=== PATIENT | female | born 1980 ===

== ENCOUNTER 2018-12-18 07:59 | Emergency (ER) | payer OTHER ==
[~2018-12-18] VITALS: Ht 165.1 cm; Wt 71.2 kg
[~2018-12-18 07:59] MED LIST: DOLOGEN CAPLET1 EACH PO; MEDROL4 MG PO; SEPTRA DS TABLE1 TAB PO
== END 2018-12-18 13:21 | disposition home or self-care (01) ==
LOC: ER 07:59
DX: B34.9 Viral infection, unspecified (principal)

== ENCOUNTER 2021-10-26 12:26 | Emergency (ER) | payer OTHER ==
[~2021-10-26] VITALS: Ht 165.1 cm; Wt 71.2 kg
[2021-10-26] MEDS ORDERED: [UNRECOGNIZED DRUG - OTHER] (12:42)
== END 2021-10-26 13:31 | disposition home or self-care (01) ==
LOC: ER 12:26
DX: J02.9 Acute pharyngitis, unspecified (principal)